=== PATIENT | male | born 2000 | race African-American/Black ===

== ENCOUNTER 2024-06-01 01:19 | Emergency (ER) | payer OTHER, SELFPAY ==
[2024-06-01] MEDS ORDERED: Bacitracin 1 PK ONE (03:05)
== END 2024-06-01 03:20 | disposition home or self-care (01) ==
LOC: CSHERS 01:19
DX: S09.90XA Unspecified injury of head, initial encounter (principal); S01.01XA Laceration without foreign body of scalp, initial encounter; S40.012A Contusion of left shoulder, initial encounter; F17.210 Nicotine dependence, cigarettes, uncomplicated; F17.290 Nicotine dependence, other tobacco product, uncomplicated; Y04.0XXA Assault by unarmed brawl or fight, initial encounter
CPT/HCPCS: 70450